=== PATIENT | female | born 1960 | race American Indian/Alaskan Native ===

== ENCOUNTER 2016-05-03 20:41 | Emergency (ER) | payer OTHER ==
[2016-05-03] MEDS ORDERED: TYLENOL ONE (21:09)
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
[2016-05-04 00:27] VITALS: BP 145/87
[2016-05-04] MEDS ORDERED: TYLENOL PO ONE (00:58)
== END 2016-05-04 00:27 | disposition home or self-care (01) ==
LOC: ED 20:41
DX: S39.012A Strain of muscle, fascia and tendon of lower back, initial encounter (principal); F17.200 Nicotine dependence, unspecified, uncomplicated; V49.49XA Driver injured in collision with other motor vehicles in traffic accident, initial encounter; X58.XXXA Exposure to other specified factors, initial encounter; Y93.9 Activity, unspecified; Y92.9 Unspecified place or not applicable; Y99.9 Unspecified external cause status
CPT/HCPCS: 99282